=== PATIENT | female | born 1940 | race Two or more races ===

== ENCOUNTER 2018-10-22 16:43 | Emergency (ER) | payer OTHER ==
[~2018-10-22] VITALS: Ht 154.9 cm; Wt 64.0 kg
[2018-10-22 18:35] LABS: Basophils # (auto) 0 uL; Basophils % (auto) 0.8 % (0.0-2.0); Eosinophils # (auto) 0.1 uL; Eosinophils % (auto) 1.5 % (0.0-7.0); Hematocrit 41.4 % (36.0-46.0); Lymphocytes % (auto) 30.7 % (10.0-50.0); Mean Corpuscular Hemoglobin 29.5 pg (28.0-32.0); Mean Corpuscular Hgb Conc. 33.8 g/dL (32.0-36.0); Mean Corpuscular Volume 87.1 fL (80.0-100.0); Monocytes # (auto) 0.6 uL; Monocytes % (auto) 9.8 % (0.0-12.0); Neutrophils # (auto) 3.7 uL; Neutrophils % (auto) 57.2 % (37.0-80.0); Nucleated Red Blood Cells % 0.2 %; Platelet Count (auto) 205 10^3/uL (140-450); Red Blood Cells 4.75 10^6/uL (4.0-5.20); Red Cell Distribution Width 14.9 % (11.8-14.3); White Blood Cell 6.4 10^3/uL (4.4-10.8)
[2018-10-22] MEDS ORDERED: FAMOTIDINE 20 MG TAB PO ONE (18:45)
[2018-10-22 18:46] LABS: Albumin 3.4 g/dL (3.4-5.0); Anion Gap 6 (5-15); Blood Urea Nitrogen 16 mg/dL (7-18); Calcium 8.5 mg/dL (8.5-10.1); Carbon Dioxide 25 mmol/L (21-32); Chloride 110 mmol/L (98-107); Glucose 109 mg/dL (74-106); Lipase 59 U/L (73-393); Potassium 3.5 mmol/L (3.5-5.1); Sodium 141 mmol/L (136-145)
[2018-10-22 18:51] LABS: Alanine Aminotransferase 45 U/L (13-56); Alkaline Phosphatase 69 U/L (45-117); Aspartate Aminotransferase 32 U/L (15-37); BUN/Creatinine Ratio 30.8; Bilirubin, Total 0.4 mg/dL (0.2-1.0); GFR African American 147 mL/min; GFR Non-African American 122 mL/min; Total Protein 6.6 g/dL (6.4-8.2)
[2018-10-22 19:02] LABS: Urine Bacteria FEW /hpf (None Seen); Urine Blood Negative /uL (Negative); Urine Hyaline Cast FEW /lpf (0 - 2); Urine Mucus FEW (None Seen); Urine Specific Gravity 1.023 (1.001-1.035); Urine WBC 1 /hpf (0 - 5)
[2018-10-22 20:15] VITALS: BP 135/74
== END 2018-10-22 20:47 | disposition home or self-care (01) ==
LOC: ER 16:51
DX: K29.00 Acute gastritis without bleeding (principal); Z90.49 Acquired absence of other specified parts of digestive tract; Z90.710 Acquired absence of both cervix and uterus
CPT/HCPCS: 36415; 74176; 80053; 81001; 83690; 84484; 85025; 93005